=== PATIENT | male | born 1995 | race Caucasian/White ===

== ENCOUNTER 2018-10-28 16:41 | Emergency (ER) | payer BC ==
[~2018-10-28] VITALS: Ht 177.8 cm; Wt 50.0 kg
[2018-10-28] MEDS ORDERED: KETOROLAC 15MG/ML VIAL IV ONE (17:30)
[2018-10-28] MEDS ORDERED: SODIUM CHLORIDE 0.9% 1,000 ML IV ONE (17:30)
[2018-10-28 18:00] LABS: BG BASE EXCESS -2.8 mmol/L (-2.0-2.0); BG CARBOXYHEMOGLOBIN 0.2 % (0.5-1.5); BG DEOXYHEMOGLOBIN 2.5 % (0.0-5.0); BG HCO3 ACT 19.2 mmol/L (22.0-26.0); BG METHEMOGLOBIN 0.4 % (0.0-1.5); BG OXYGEN SATURATION 97.5 % (92.0-98.5); BG OXYHEMOGLOBIN 96.9 % (94.0-97.0); BG PO2 92.8 mmHg (75.0-100.0); BG SAMPLE SITE RIGHT RADIAL; BG TOTAL HEMOGLOBIN 15.4 g/dL (12.0-18.0); BG VENT MODE ROOM AIR
[2018-10-28 18:14] LABS: BASOPHILS % 1.8 % (0.0-2.0); EOSINOPHILS % 8.6 % (0.0-5.0); HEMATOCRIT. 44.7 % (42.0-52.0); HEMOGLOBIN. 15.5 g/dL (14.0-18.0); LYMPHOCYTES % 36.1 % (20.0-50.0); MEAN CORPUSCULAR HEMOGLOBIN 30.5 pg (28.0-32.0); MEAN CORPUSCULAR VOLUME 87.6 fL (80.0-94.0); MONOCYTES % 7.3 % (2.0-8.0); NEUTROPHILS % 46.2 % (40.0-76.0); PLATELET 272 x1000/uL (130-400); RED CELL DISTRIBUTION WIDTH 12.9 % (11.6-14.6)
[2018-10-28 18:19] LABS: CHLORIDE 108 mEq/L (98-107)
[2018-10-28 19:09] VITALS: BP 107/71
== END 2018-10-28 19:27 | disposition home or self-care (01) ==
LOC: ER 18:17
DX: E80.6 Other disorders of bilirubin metabolism (principal); R07.89 Other chest pain; R53.1 Weakness; M79.10 Myalgia, unspecified site; R06.02 Shortness of breath; F20.9 Schizophrenia, unspecified; F12.10 Cannabis abuse, uncomplicated; Z98.890 Other specified postprocedural states; Z91.010 Allergy to peanuts; Z88.4 Allergy status to anesthetic agent
CPT/HCPCS: 36415; 36600; 71045; 80053; 82375; 82805; 83880; 84484; 85025; 93005; 96374; 99284; J1885; J7030; Z7610

== ENCOUNTER 2019-01-08 18:31 | Emergency (ER) | payer BC ==
[~2019-01-08] VITALS: Ht 167.6 cm; Wt 75.0 kg
[2019-01-08 19:37] LABS: BASOPHILS % 1.1 % (0.0-2.0); EOSINOPHILS % 7.9 % (0.0-5.0); HEMATOCRIT. 43.6 % (42.0-52.0); HEMOGLOBIN. 15.1 g/dL (14.0-18.0); LYMPHOCYTES % 41.6 % (20.0-50.0); MEAN CORPUSCULAR HEMOGLOBIN 30.2 pg (28.0-32.0); MEAN CORPUSCULAR VOLUME 87.3 fL (80.0-94.0); MEAN PLATELET VOLUME 8.5 fl (7.4-10.4); MONOCYTES % 7.9 % (2.0-8.0); NEUTROPHILS % 41.5 % (40.0-76.0); PLATELET 259 x1000/uL (130-400); RED BLOOD CELL COUNT 4.99 mill/uL (4.7-6.1); RED CELL DISTRIBUTION WIDTH 12.9 % (11.6-14.6)
[2019-01-08 19:40] LABS: CHLORIDE 109 mEq/L (98-107)
[2019-01-08 19:44] LABS: ETHANOL BLOOD < 10 mg/dL
[2019-01-08 19:54] LABS: CLARITY URINE CLEAR (CLEAR); COLOR URINE YELLOW (YELLOW); KETONES URINE NEGATIVE (NEGATIVE); LEUKOCYTE ESTERASE URINE NEGATIVE (NEGATIVE); NITRITE URINE NEGATIVE (NEGATIVE); OCCULT BLOOD URINE NEGATIVE (NEGATIVE); PROTEIN URINE NEGATIVE (NEGATIVE); SPECIFIC GRAVITY URINE 1.011 (1.005-1.030); UROBILINOGEN URINE 0.2 E.U./dL (0.2-1.0)
[2019-01-08 20:10] LABS: *AMPHETAMINES SCREEN URINE NEGATIVE (NEGATIVE); *BARBITURATES SCREEN URINE NEGATIVE (NEGATIVE); *BENZODIAZEPINES SCREEN URINE NEGATIVE (NEGATIVE); *COCAINE SCREEN URINE NEGATIVE (NEGATIVE)
[2019-01-08 20:11] LABS: CANNABINOID URINE SCREEN NEGATIVE (NEGATIVE); METHADONE URINE SCREEN NEGATIVE (NEGATIVE); OPIATES URINE SCREEN NEGATIVE (NEGATIVE); PHENCYCLIDINE URINE SCREEN NEGATIVE (NEGATIVE)
[2019-01-08 20:36] VITALS: BP 110/66
== END 2019-01-08 20:51 | disposition home or self-care (01) ==
LOC: ER 18:31
DX: R56.9 Unspecified convulsions (principal); Z91.010 Allergy to peanuts; Z91.018 Allergy to other foods
CPT/HCPCS: 36415; 80305; 80320; 81003; 99283; G0480